=== PATIENT | male | born 2005 | race Caucasian/White ===

== ENCOUNTER 2024-06-03 06:41 | Day surgery (SDC) | payer OTHER, SELFPAY ==
[2024-06-03 10:04] VITALS: BMI 22.8
[2024-06-03 10:05] VITALS: BMI 22.8
[2024-06-03 10:13] VITALS: BP 129/67
[2024-06-03] MEDS: CELEBREX 200 MG PO (10:20)
[2024-06-03] MEDS: NORMOSOL-R/PLASMALYTE-A 1000 IV (10:21)
[2024-06-03] MEDS: TYLENOL 1000 MG PO (10:21)
--- NOTE | 2024-06-03 12:32 | W.IMMPOSTOP ---
Surgical Immed Post Op Note
-
Primary Surgeon: Terry Israel MD
Assisting Surgeon: None
Pre-op Diagnosis: Anal fissure
Post-op Diagnosis: Anal fissure
Procedure Performed: Exam under anesthesia, Botox injection of internal anal sphincter, fissurectomy, bilateral pudendal nerve block
Anesthesia Type: Sedation with local
Specimen / Cultures: Anal fissure margins
Estimated Blood Loss: 5 mL
Complications: None
Operative Findings: Persistent posterior midline fissure, about 1 cm in length and 5 mm wide, no exposed muscle fibers; biopsied the fissure margins and cauterized the base of the fissure; normal small internal hemorrhoids in 3 column distribution;
injected 100 units divided into 4 quadrants
[2024-06-03 12:35] VITALS: BP 129/67; BP 96/44
--- NOTE | 2024-06-03 12:35 | OR.RPT ---
Operative Report
Operative Report
DATE OF OPERATION: 06/03/2024
SURGEON: Terry Israel MD
PREOPERATIVE DIAGNOSIS: Anal fissure
POSTOPERATIVE DIAGNOSIS: Anal fissure
OPERATION: Exam under anesthesia, injection of botox into internal anal sphincter, fissurectomy, bilateral pudendal nerve block
ASSISTANTS:
1. None
ANESTHESIA: MAC w/ local
ESTIMATED BLOOD LOSS: 5 mL
FINDINGS:
1. Persistent posterior midline anal fissure, about 1 cm x 5 mm; biopsied margins due to chronicity and cauterized base
2. Incidental findings include very small internal hemorrhoids in the usual 3-column distribution, not irritated or bleeding, and perianal irritation in a clarissa-pattern and flattening of the anoderm
SPECIMENS:
1. Anal fissure margins
DRAINS: N/A
COMPLICATIONS: None
INDICATIONS: The patient is a 18-year-old male who presented to my office with perianal pain and was found to have a posterior midline anal fissure. He was initially treated nonoperatively with success. However, he suffered a recurrence. After
another trial of nonoperative measures, the fissure persisted. Therefore, the patient was recommended to have surgery. The operation was discussed with the patient in detail, including the risks, benefits and alternatives. Risks described included,
but not limited to bleeding, infection, urinary retention, damage to nearby structures such as the anal sphincter, fecal incontinence, recurrence, and anesthetic risks. The patient understood and agreed to proceed. The consent was signed and placed
in the chart.
PROCEDURE IN DETAIL: The patient was taken to the operating room. The patient was placed on the operating table in prone position. Sequential compression devices were placed bilaterally. Sedation was commenced without complication. Two seat belts
were secured around the legs and upper back. The buttocks were taped apart. The perineum was shaved, prepped and draped in the usual fashion. A time-out was then performed verifying the correct patient, procedure, operative site, positioning, and
special equipment.
Local anesthesia used was a mixture of 60 mL of 0.25% Marcaine with epinephrine and 0.6 mg of dexamethasone. 40 mL was injected perianally at the beginning of the case. The anorectal exam was performed assessing all four quadrants of the anal canal
using Hill-Echeverria retractors in progressively increasing size. The anal canal was somewhat narrow, but accommodated the medium Hill-Echeverria. There was chronic irritation noted in the perianal skin in a clarissa pattern, with flattening of the
skin. The posterior midline fissure was still present and appeared about 1 cm in length by 5 mm in width. There was some epithelialization at the wound base. No exposed sphincter muscle was noted. The internal sphincter was mildly hypertonic and
would not accommodate the large Hill-Echeverria. There were very small, normal-appearing, internal hemorrhoids in the usual 3-column distribution without irritation or bleeding. These were left alone.
The fissure was fulgurated with electrocautery to encourage wound healing. Due to the chronicity of the anal fissure, I biopsied the margins bilaterally using forceps and Metzenbaum scissors. Hemostasis was achieved with electrocautery. 100 units
of Botox was drawn up with 2 mL of sterile saline. Using a 27-gauge needle, the Botox was injected in 4 quadrants in equal portions, specifically 25 units in the anterior midline, right lateral quadrant, posterior midline and left lateral quadrant.
Care was taken to avoid incidental injection into the external sphincter.
The remaining 20 mL of local were injected. 5 mL was injected bilaterally for a pudendal nerve block. 10 mL was injected around the surgical site and perianally. Hemostasis was reassessed once more using the small Hill-Echeverria and was confirmed.
Surgicel was placed in the operative site prophylactically.
At this point, the procedure was complete. All needle, sponge and instrument counts were correct. The patient tolerated the procedure well and was transferred to the recovery room in stable condition with gauze dressing in place secured with silk
tape.
DICTATED BY: Terry Israel MD
[2024-06-03] MEDS: SUBLIMAZE 50 MCG IV (12:44)
[2024-06-03 12:45] VITALS: BP 103/36
[2024-06-03 13:00] VITALS: BP 110/45
[2024-06-03 13:30] VITALS: BP 114/57
[2024-06-03] MEDS: ROXICODONE 5 MG PO (13:34)
[2024-06-03 13:45] VITALS: BP 112/53
== END 2024-06-03 14:02 | disposition home or self-care (01) ==
LOC: SDS 06:41
PROVIDERS: ATTENDING PHYSICIAN Surgery
DX: K60.2 Anal fissure, unspecified (principal)
CPT/HCPCS: 45990; 46505; 88304; 88341; 88342; J0585